=== PATIENT | female | born 1970 | race Caucasian/White ===

== ENCOUNTER 2018-10-15 00:45 | Emergency (ER) | payer SELFPAY ==
[~2018-10-15] VITALS: Ht 165.1 cm; Wt 61.2 kg
[2018-10-15 00:45] VITALS: BP 122/75
--- NOTE | 2018-10-15 00:45 | NUR ---
ED Nurse Note: Patient biba Ra 28 c/o lower abdominal pain for 1 week, states that she woke up with a "concussion"
--- NOTE | 2018-10-15 01:40 | NUR ---
ED Nurse Note: PT REFUSES BLOOD DRAW. INFORMED ERMD, ERMD AWARE. URINE SPECIMEN SENT TO LAB
[2018-10-15 01:45] LABS: APPEARANCE,URINE CLEAR; BILIRUBIN, URINE NEGATIVE (NEGATIVE); COLOR,URINE PALE YELLOW; GLUCOSE, URINE (UA) NEGATIVE (NEGATIVE); KETONES,URINE NEGATIVE (NEGATIVE); LEUKOCYTE ESTERASE ,URINE 1+ (NEGATIVE); NITRITE,URINE NEGATIVE (NEGATIVE); PH,URINE 5 (4.5-8.0); PROTEIN,URINE NEGATIVE (NEGATIVE); UROBILINOGEN,URINE NORMAL MG/DL (0.0-1.0)
--- NOTE | 2018-10-15 03:18 | Emergency Room Report ---
History of Present Illness General Chief Complaint: General Complaint Source: Patient Present Illness HPI Patient presents with complaints of what she reports as kidney pain also some dysuria Denies any headache denies any chest pain denies any vomiting or diarrhea denies any fevers Symptoms ongoing for the past 3 days Allergies: Coded Allergies: No Known Allergies (Unverified , 10/15/18) Patient History Past Medical History: see triage record Last Menstrual Period: n/a Reviewed Nursing Documentation: PMH: Agreed; PSxH: Agreed Nursing Documentation-PMH Past Medical History: No Stated History Review of Systems All Other Systems: negative except mentioned in HPI Physical Exam Vital Signs Date Time Temp Pulse Resp B/P (MAP) Pulse Ox O2 Delivery O2 Flow Rate FiO2 10/15/18 00:26 98.2 82 18 122/75 (91) 98 Room Air Sp02 EP Interpretation: reviewed, normal General Appearance: well appearing, no apparent distress Head: normocephalic, atraumatic Eyes: bilateral eye PERRL, bilateral eye EOMI ENT: hearing grossly normal, normal pharynx Neck: supple Respiratory: lungs clear Cardiovascular #1: regular rate, rhythm Gastrointestinal: non tender, soft Musculoskeletal: normal inspection Neurologic: alert, oriented x3, responsive Psychiatric: normal inspection Skin: no rash, palpation normal Lymphatic: no adenopathy Medical Decision Making Diagnostic Impression: Primary Impression: Dysuria ER Course Given the patient's complaints multiple differentials including but not limited to UTI, pyelonephritis entertained patient also reports that she has had previous Kidney stones initially blood work and Imaging studies were initiated however patient is refusing blood tests at this time Urine sample does not show any obvious acute pathology patient also refusing CT imaging Urine sample does not show any obvious infectious pathology patient however essentially Insisting on antibiotic and was prescribed Bactrim for possible few bacteria in the urine And will have close outpatient follow-up Labs Test 10/15/18 01:35 Urine Color Pale yellow Urine Appearance Clear Urine pH 5 (4.5-8.0) Urine Specific Zullinger 1.020 (1.005-1.035) Urine Protein Negative (NEGATIVE) Urine Glucose (UA) Negative (NEGATIVE) Urine Ketones Negative (NEGATIVE) Urine Blood Negative (NEGATIVE) Urine Nitrite Negative (NEGATIVE) Urine Bilirubin Negative (NEGATIVE) Urine Urobilinogen Normal MG/DL (0.0-1.0) Urine Leukocyte Esterase 1+ (NEGATIVE) Urine RBC 0-2 /HPF (0 - 2) Urine WBC 2-4 /HPF (0 - 2) Urine Squamous Epithelial Cells Few /LPF (NONE/OCC) Urine Bacteria Few /HPF (NONE) Last Vital Signs Date Time Temp Pulse Resp B/P (MAP) Pulse Ox O2 Delivery O2 Flow Rate FiO2 10/15/18 00:45 98.2 82 18 122/75 98 Room Air Status: improved Disposition: HOME, SELF-CARE Condition: Improved Scripts Trimethoprim/Sulfamethoxazole 160/800* (BACTRIM DS TABLET*) 1 Each Tablet 1 TAB ORAL Q12H, #14 TAB 0 Refills Prov: Peewee Oshea DO 10/15/18 Additional Instructions: Please note that you have refused further blood work and imaging This can limit the findings and diagnoses that we are able to make and can prevent And lead to missed diagnoses Patient is provided with the discharge instructions notified to follow up with primary doctor in the next 2-3 days otherwise return to the er with any worsening symptoms. Please note that this report is being documented using [employer] technology. This can lead to erroneous entry secondary to incorrect interpretation by the dictating instrument. Peewee Oshea DO Oct 15, 2018 03:18
[2018-10-15 03:24] VITALS: BP 131/76
[2018-10-15] MEDS ORDERED: BACTRIM DS TAB1 EAC1 ORAL (04:40)
[2018-10-15 05:00] VITALS: BP 138/79
--- NOTE | 2018-10-15 05:00 | NUR ---
ER DISCHARGE NOTE: Patient is cleared to be discharged per ERMD, pt is aox4, on room air, with stable vital signs. pt was given dc and prescription instructions, pt was able to verbalize understanding, pt id band removed. pt is able to ambulate with steady gait. pt took all belongings.
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
== END 2018-10-15 05:00 | disposition home or self-care (01) ==
LOC: EDBD 00:45 → EMR 03:37
DX: R30.0 Dysuria (principal); Z87.442 Personal history of urinary calculi
CPT/HCPCS: 81003; 99282